=== PATIENT | female | born 1990 | race Caucasian/White ===

== ENCOUNTER 2018-11-13 13:14 | Emergency (ER) | payer MEDICAID ==
[~2018-11-13] VITALS: Ht 160 cm; Wt 50.0 kg
[2018-11-13 13:19] VITALS: BP 113/66
[2018-11-13] MEDS ORDERED: ACET325C PO (13:21)
[2018-11-13] MEDS ORDERED: FLON1SPR NARES (14:11)
[2018-11-13] MEDS ORDERED: AUGM875T28 PO (14:11)
[2018-11-13] MEDS ORDERED: MUCI600T31 PO (14:11)
[2018-11-13] MEDS ORDERED: ZYRTTAB8 PO (14:11)
== END 2018-11-13 14:16 | disposition home or self-care (01) ==
LOC: M ED 13:14
DX: J01.90 Acute sinusitis, unspecified (principal)

== ENCOUNTER → 2018-12-27 | Outpatient (REF) | payer OTHER ==
[~2018-12-27] MED LIST: ACET325C PO; AUGM875T28 PO; FLON1SPR NARES; MUCI600T31 PO; ZYRTTAB8 PO
[2018-12-27 21:12] LABS: CHLAMYDIA DNA AMPLIFICATION NEGATIVE (NEGATIVE); GC DNA AMPLIFICATION NEGATIVE (NEGATIVE)
== END ==
LOC: M SFHCLERA 16:28
PROVIDERS: ATTEND Nurse Practitioner Family
DX: R30.0 Dysuria (principal); N89.8 Other specified noninflammatory disorders of vagina

== ENCOUNTER → 2019-03-26 | Outpatient (REF) | payer OTHER ==
[2019-03-26 17:54] LABS: ALBUMIN 4.5 GM/DL (3.2-5.2); ALT/SGPT 15 U/L (12-78); BILIRUBIN,TOTAL 0.6 MG/DL (0.2-1.0); BLOOD UREA NITROGEN 15 MG/DL (7-18); CALCIUM LEVEL 9.4 MG/DL (8.5-10.1); CARBON DIOXIDE LEVEL 31 MEQ/L (21-32); CHLORIDE LEVEL 101 MEQ/L (98-107); CHOLESTEROL LEVEL 197 MG/DL (<200); CHOLESTEROL RISK RATIO 1.989 (<5); CREATININE FOR GFR 0.85 MG/DL (0.55-1.30); FREE T4 1.06 NG/DL (0.76-1.46); GLOMERULAR FILTRATION RATE > 60.0 (>60); GLUCOSE, FASTING 87 MG/DL (70-100); HDL CHOLESTEROL 99 MG/DL (>40); LDL CHOLESTEROL 86 MG/DL (<100); NON-HDL-C 98 MG/DL; POTASSIUM SERUM 4.1 MEQ/L (3.5-5.1); SODIUM LEVEL 138 MEQ/L (136-145); TOTAL PROTEIN 7.4 GM/DL (6.4-8.2); TRIGLYCERIDES LEVEL 62 MG/DL (<150)
[2019-03-26 17:56] LABS: TOTAL 25(OH) VITAMIN D 23.5 NG/ML (30.0-100.0)
[2019-03-26 18:02] LABS: BASO % 0.3 % (0.0-1.0); EOS # 0.1 10^3/uL (0.0-0.50); EOS % 0.6 % (0.0-3.0); HEMOGLOBIN 14.9 g/dl (12.0-15.5); LYMPH # 1.5 10^3/uL (1.5-6.5); LYMPH % 19.2 % (24.0-44.0); MEAN CORPUSCULAR HEMOGLOBIN 32.3 pg (27.0-33.0); MEAN CORPUSCULAR HGB CONC 34.7 g/dl (32.0-36.5); MEAN CORPUSCULAR VOLUME 93.1 fl (80.0-96.0); MONO # 0.7 10^3/uL (0.0-0.8); MONO % 8.4 % (0.0-5.0); NEUTROPHILS # 5.5 10^3/uL (1.8-7.7); NEUTROPHILS % 71.1 % (36.0-66.0); PLATELET COUNT, AUTOMATED 208 10^3/uL (150-450); RED BLOOD COUNT 4.62 10^6/uL (4.00-5.40); WHITE BLOOD COUNT 7.8 10^3/uL (4.0-10.0)
[2019-03-26 18:19] LABS: HEMOGLOBIN A1c 5.4 %
== END ==
LOC: M LAB REF 16:29
PROVIDERS: ATTEND Nurse Practitioner Family
DX: Z00.00 Encounter for general adult medical examination without abnormal findings (principal)

== ENCOUNTER 2019-03-27 03:23 | Emergency (ER) | payer OTHER ==
[~2019-03-27] VITALS: Ht 160 cm; Wt 55.5 kg
[~2019-03-27 03:23] MED LIST changes: -ACET325C PO; +ACET325C5 PO
[2019-03-27 04:20] LABS: APPEARANCE, URINE CLEAR (CLEAR); BACTERIA, URINE AUTO NEGATIVE (NEGATIVE); BILIRUBIN, URINE AUTO NEGATIVE (NEGATIVE); BLOOD, URINE BLOOD NEGATIVE (NEGATIVE); COLOR, URINE YELLOW (YELLOW); GLUCOSE, URINE (UA) AUTO NEGATIVE (NEGATIVE); HCG, SERUM QUALITATIVE NEGATIVE (NEGATIVE); KETONE, URINE AUTO NEGATIVE (NEGATIVE); LEUKOCYTE ESTERASE, URINE AUTO NEGATIVE (NEGATIVE); MUCUS, URINE SMALL (NEGATIVE); NITRITE, URINE AUTO NEGATIVE (NEGATIVE); PROTEIN, URINE AUTO NEGATIVE (NEGATIVE); RBC, URINE AUTO 3 /HPF (0-3); SPECIFIC GRAVITY URINE AUTO 1.017 (1.002-1.035); SQUAMOUS EPITHELIAL CELL UR AU 1 /HPF (0-6); UROBILINOGEN, URINE AUTO 0.2 mg/dL (0.0-2.0); WBC, URINE AUTO 0 /HPF (0-3)
[2019-03-27 05:42] LABS: CHLAMYDIA DNA AMPLIFICATION NEGATIVE (NEGATIVE); GC DNA AMPLIFICATION NEGATIVE (NEGATIVE)
[2019-03-27 06:14] VITALS: BP 132/81
== END 2019-03-27 06:43 | disposition home or self-care (01) ==
LOC: M ED 03:23
DX: R10.2 Pelvic and perineal pain (principal); G89.29 Other chronic pain

== ENCOUNTER 2019-04-22 17:47 | Emergency (ER) | payer OTHER ==
[~2019-04-22] VITALS: Ht 160 cm; Wt 52.3 kg
[2019-04-22] MEDS ORDERED: KETOROLAC 30 MG/ML VIAL (J1885) IV ONE (19:15)
[2019-04-22 19:40] LABS: HEMATOCRIT 41.8 % (36.0-47.0); HEMOGLOBIN 14.5 g/dl (12.0-15.5); MEAN CORPUSCULAR HEMOGLOBIN 32.1 pg (27.0-33.0); MEAN CORPUSCULAR HGB CONC 34.7 g/dl (32.0-36.5); MEAN CORPUSCULAR VOLUME 92.5 fl (80.0-96.0); PLATELET COUNT, AUTOMATED 219 10^3/uL (150-450); RED BLOOD COUNT 4.52 10^6/uL (4.00-5.40); WHITE BLOOD COUNT 7.6 10^3/uL (4.0-10.0)
[2019-04-22 20:09] LABS: ALBUMIN 4.4 GM/DL (3.2-5.2); ALT/SGPT 17 U/L (12-78); BILIRUBIN,DIRECT < 0.1 MG/DL (0.0-0.2); BILIRUBIN,TOTAL 0.4 MG/DL (0.2-1.0); LIPASE 91 U/L (73-393); TOTAL PROTEIN 7.3 GM/DL (6.4-8.2)
--- NOTE | 2019-04-22 20:34 | REPVR ---
PROCEDURE INFORMATION: Exam: US Pelvis Complete, Transabdominal and US Pelvis, Transvaginal Exam date and time: 04/22/2019 7:51 PM Clinical history: 28 years old, female; Pelvic pain; Additional info: Right pelvic pain TECHNIQUE: Imaging protocol: Real-time transabdominal and transvaginal pelvic ultrasound (complete) with image documentation. Transvaginal imaging was used for better evaluation of the endometrium and adnexa. COMPARISON: No relevant prior studies available. FINDINGS: Uterus/cervix: Uterus measures 8 x 3.7 x 4.9 cm. Endometrial echocomplex measures 3.8 mm. Right adnexa: Right ovary measures 2.7 x 2.2 x 3 cm. Normal flow. Resistive index 0.2. Follicles. Left adnexa: Left ovary measures 2.7 x 1.8 x 2.5 cm. Normal flow. Resistive index 0.65. Follicles. Free fluid: None. Bladder: Normal. IMPRESSION: Normal study. Electronically signed by: Edwin Green On 04/22/2019 20:33:53 PM
--- NOTE | 2019-04-22 20:39 | REPVR ---
PROCEDURE INFORMATION: Exam: CT Abdomen and Pelvis Without Contrast Exam date and time: 04/22/2019 7:55 PM Clinical history: 28 years old, female; Abdominal pain; Flank; Right; Additional info: Right flank pain TECHNIQUE: Imaging protocol: Computed tomography of the abdomen and pelvis without contrast. Radiation optimization: All CT scans at this facility use at least one of these dose optimization techniques: automated exposure control; mA and/or kV adjustment per patient size (includes targeted exams where dose is matched to clinical indication); or iterative reconstruction. 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 No mass. Gallbladder and bile ducts: Normal. No calcified stones. No ductal dilation. Pancreas: Normal. No ductal dilation. Spleen: Normal. No splenomegaly. Adrenals: Normal. No mass. Kidneys and ureters: Punctate nonobstructive calculi left kidney. Stomach and bowel: Unremarkable. No obstruction. No mucosal thickening. Appendix: No evidence of appendicitis. Normal appendix. Intraperitoneal space: Minimal fluid in the cul-de-sac likely physiologic Vasculature: Unremarkable. No abdominal aortic aneurysm. Lymph nodes: Unremarkable. No enlarged lymph nodes. Bladder: Unremarkable as visualized. Reproductive: Unremarkable as visualized. Bones/joints: Unremarkable. No acute fracture. Soft tissues: Unremarkable. IMPRESSION: 1. Punctate nonobstructive calculi left kidney. 2. No acute findings. 3. Normal appendix. Electronically signed by: Edwin Green On 04/22/2019 20:39:29 PM
[2019-04-22 21:29] VITALS: BP 120/77
== END 2019-04-22 21:42 | disposition home or self-care (01) ==
LOC: M ED 17:47
DX: N20.0 Calculus of kidney (principal)
CPT/HCPCS: 74176; 76830; 76856; 80047; 80076; 83690; 84702; 85027; 93976; 96374; 99284; J1885